=== PATIENT | male | born 1940 | race Caucasian/White ===

== ENCOUNTER 2019-05-26 11:50 | Emergency (ER) | payer OTHER ==
[~2019-05-26] VITALS: Ht 162.6 cm; Wt 63.5 kg
[2019-05-26 13:04] LABS: Source, Urine Clean Catch
[2019-05-26 13:10] LABS: Bilirubin, Urine Neg (Neg); Blood, Urine 2+ (Neg); Glucose Qualitative, Urine Neg (Neg); Ketones, Urine Neg (Neg); Leukocyte Esterase, Urine 1+ (Neg); Nitrite, Urine Neg (Neg); Protein, Urine Neg (Neg); Urobilinogen, Urine NORM (Normal)
[2019-05-26 13:30] LABS: Alanine Aminotransfer (ALT/SGP 17 U/L (12-78); Albumin, Blood 3.5 g/dL (3.4-5.0); Albumin/Globulin Ratio 0.8 (0.8-1.8); Alk Phos 48 U/L (50-136); Anion Gap 6 mmol/L (6-16); Aspartate Aminotrans (AST/SGOT 15 U/L (12-37); Bilirubin, Total 0.2 mg/dL (0.1-1.0); Blood Urea Nitrogen 22 mg/dL (8-24); Bun/Creatinine Ratio 18.6 (12.0-20.0); CO2, Blood 25 mmol/L (21-32); Calcium, Blood 9.1 mg/dL (8.5-10.1); Chloride, Blood 107 mmol/L (98-108); Creatinine, Blood 1.18 mg/dL (0.60-1.20); Globulin, Blood 4.4 g/dL (2.2-4.0); Glomerular Filtration Rate >60 (60-); Glucose, Blood 75 mg/dL (70-99); Sodium, Blood 138 mmol/L (136-145); Total Protein, Blood 7.9 g/dL (6.4-8.2)
[2019-05-26 13:36] LABS: Appearance, Urine Clear (Clear); Color, Urine Yellow (P-Yellow)
[2019-05-26 13:40] LABS: Bacteria Not Seen /hpf; Red Blood Cells, Urine Not Seen /hpf (0-2); Squamous Epithelial Cells Not Seen /hpf (Few)
[2019-05-26] MEDS ORDERED: LEVFLO500 PO (14:00)
[2019-05-26 14:01] LABS: BASOPHILS ABSOLUTE AUTO 0.05 K/mm3 (0.00-0.23); BASOPHILS PERCENT AUTO 0 % (0-2); EOSINOPHILS ABSOLUTE AUTO 0.06 K/mm3 (0.00-0.68); EOSINOPHILS PERCENT AUTO 1 % (0-6); Hematocrit 39.7 % (37.0-53.0); Hemoglobin 13.2 g/dL (13.5-17.5); IMMATURE GRAN ABSOLUTE AUTO 0.08 K/mm3 (0.00-0.10); IMMATURE GRAN PERCENT AUTO 1 % (0-1); LYMPHOCYTES ABSOLUTE AUTO 2.36 K/mm3 (0.84-5.20); LYMPHOCYTES PERCENT AUTO 18 % (21-46); MONOCYTES ABSOLUTE AUTO 1.73 K/mm3 (0.16-1.47); MONOCYTES PERCENT AUTO 13 % (4-13); Mean Corpuscular HGB Conc 33.2 g/dL (31.5-36.5); Mean Corpuscular Volume 93 fL (80-100); Mean Platelet Volume 9.5 fL (9.1-12.4); NEUTROPHILS ABSOLUTE AUTO 8.71 K/mm3 (1.96-9.15); NEUTROPHILS PERCENT AUTO 67 % (41-73); Platelet Count 210 K/mm3 (150-400); RDW Standard Deviation 44.1 fL (35.1-46.3); Red Blood Cell Count 4.26 M/mm3 (4.30-5.90); White Blood Cell Count 12.99 K/mm3 (4.00-11.30)
== END 2019-05-26 14:54 | disposition home or self-care (01) ==
LOC: ER 11:50
PROVIDERS: Emergency Medicine
DX: N45.1 Epididymitis (principal); I10 Essential (primary) hypertension; Z79.899 Other long term (current) drug therapy
CPT/HCPCS: 36415; 76870; 80053; 81001; 85025; 87077; 87086; 87186; 99284-25; A9270-GY

== ENCOUNTER 2019-07-29 09:11 | Emergency (ER) | payer SELFPAY ==
[~2019-07-29] VITALS: Ht 160 cm; Wt 63.5 kg
[~2019-07-29 09:11] MED LIST: LEVFLO500 PO
[2019-07-29] MEDS ORDERED: IBUP600 PO (11:28)
== END 2019-07-29 11:49 | disposition home or self-care (01) ==
LOC: ER 09:11
DX: M65.4 Radial styloid tenosynovitis [de Quervain] (principal); Z87.891 Personal history of nicotine dependence
CPT/HCPCS: 73110; 99283-25

== ENCOUNTER 2020-12-20 08:24 | Emergency (ER) | payer OTHER ==
[~2020-12-20] VITALS: Ht 167.6 cm; Wt 59.0 kg
[~2020-12-20 08:24] MED LIST changes: +IBUP600 PO
[2020-12-20 08:46] LABS: Appearance, Urine Clear (Clear); Blood, Urine Neg (Neg); Glucose Qualitative, Urine Neg (Neg); Ketones, Urine Neg (Neg); Leukocyte Esterase, Urine Neg (Neg); Nitrite, Urine Pos (Neg); Protein, Urine Neg (Neg); Urobilinogen, Urine 3+ (Normal)
[2020-12-20 08:53] LABS: Bilirubin, Urine 3+ (Neg); Color, Urine Other (P-Yellow)
[2020-12-20 09:09] LABS: Bacteria Rare /hpf; Red Blood Cells, Urine 0-2 /hpf (0-2); Squamous Epithelial Cells Rare /hpf (Few); White Blood Cells, Urine 0-2 /hpf (0-5)
[2020-12-20] MEDS ORDERED: Flomax0.4 MG PO (09:12)
[2020-12-20] MEDS ORDERED: Cipro500 MG PO (09:12)
== END 2020-12-20 10:46 | disposition home or self-care (01) ==
LOC: ER 08:24
PROVIDERS: Student in an Organized Health Care Education/Training Program
DX: N39.0 Urinary tract infection, site not specified (principal); I10 Essential (primary) hypertension; Z87.891 Personal history of nicotine dependence
CPT/HCPCS: 81001; 87086; 99283

== ENCOUNTER 2024-04-05 10:44 | Day surgery (SDC) | payer OTHER ==
[~2024-04-05] VITALS: Ht 165.1 cm; Wt 60.7 kg
[~2024-04-05 10:44] MED LIST changes: +Balanced Salt Epinephrine Irrigation Solution 500 mL IR SCH; +Cipro500 MG PO; +Diazepam 2 MG Tab PO PRN; +Flomax0.4 MG PO; +Lidocaine HCl/Pf 1% 5 ML VIAL XX SCH; +Moxifloxacin HCL 0.5 MG/0.1 ML 0.4MLSYR RIGHTEYE SCH; +Ondansetron 4 MG SoluTab MM PRN; +PHENYLEPHRINE\\TROPICAMIDE\\TETRACAINE OPHTHALMIC DILATING SOLN RIGHTEYE PRN; +Povidone-Iodine 450 DROP/30 ML Solution ONE; +Povidone-Iodine 450 DROP/30 ML Solution RIGHTEYE SCH; +Tetracaine HCl/Pf 0.5% Opth Soln 4 ml ONE; +Triamcinolone Inj Susp 40 MG / ML 1ML Vial INJ SCH; +Triamcinolone Inj Susp 40 MG / ML 1ML Vial ONE; +diazePAM 2 MG,diazePAM 5 MG PO SCH
[2024-04-05] MEDS ORDERED: MULTI-VITAMIN1 EAC2 PO (11:37)
--- NOTE | 2024-04-05 11:45 | NUR ---
04/05/24 1145 Bonnie Moreland TETRACAINE DROP IN RIGHT EYE 1128. PLEDGETT IN RIGHT EYE 1130. ALL PER ORSC.RDS.
[2024-04-05] MEDS ORDERED: propofoL 20 ML IV ONE (11:53)
[2024-04-05] MEDS ORDERED: NS 500 ML IV ONE (12:00)
[2024-04-05 12:28] VITALS: BP 101/68
== END 2024-04-05 12:42 | disposition home or self-care (01) ==
LOC: ORSCSDS 10:44
PROVIDERS: Ophthalmology
PROC: 08RJ3JZ Replacement of Right Lens with Synthetic Substitute, Percutaneous Approach (ICD-10-PCS; principal; 2024-04-05 12:00)
DX: H25.811 Combined forms of age-related cataract, right eye (principal); Z96.1 Presence of intraocular lens
CPT/HCPCS: J2704; J3301; J7040; V2632

== ENCOUNTER 2024-12-17 16:55 | Observation (INO) | payer OTHER ==
[~2024-12-17] VITALS: Ht 167.6 cm; Wt 60.1 kg
[~2024-12-17 16:55] MED LIST changes: -Balanced Salt Epinephrine Irrigation Solution 500 mL IR SCH; -Diazepam 2 MG Tab PO PRN; -Lidocaine HCl/Pf 1% 5 ML VIAL XX SCH; +MULTI-VITAMIN1 EAC2 PO; -Moxifloxacin HCL 0.5 MG/0.1 ML 0.4MLSYR RIGHTEYE SCH; -Ondansetron 4 MG SoluTab MM PRN; -PHENYLEPHRINE\\TROPICAMIDE\\TETRACAINE OPHTHALMIC DILATING SOLN RIGHTEYE PRN; -Povidone-Iodine 450 DROP/30 ML Solution ONE; -Povidone-Iodine 450 DROP/30 ML Solution RIGHTEYE SCH; -Tetracaine HCl/Pf 0.5% Opth Soln 4 ml ONE; -Triamcinolone Inj Susp 40 MG / ML 1ML Vial INJ SCH; -Triamcinolone Inj Susp 40 MG / ML 1ML Vial ONE; -diazePAM 2 MG,diazePAM 5 MG PO SCH
[2024-12-17 18:07] LABS: BASOPHILS ABSOLUTE AUTO 0.04 K/mm3 (0.00-0.23); BASOPHILS PERCENT AUTO 1 % (0-2); EOSINOPHILS ABSOLUTE AUTO 0.15 K/mm3 (0.00-0.68); EOSINOPHILS PERCENT AUTO 2 % (0-6); Hematocrit 40.5 % (37.0-53.0); Hemoglobin 13.2 g/dL (13.5-17.5); IMMATURE GRAN ABSOLUTE AUTO 0.03 K/mm3 (0.00-0.10); IMMATURE GRAN PERCENT AUTO 0 % (0-1); LYMPHOCYTES ABSOLUTE AUTO 1.76 K/mm3 (0.84-5.20); LYMPHOCYTES PERCENT AUTO 21 % (21-46); MONOCYTES ABSOLUTE AUTO 0.99 K/mm3 (0.16-1.47); MONOCYTES PERCENT AUTO 12 % (4-13); Mean Corpuscular HGB Conc 32.6 g/dL (31.5-36.5); Mean Corpuscular Volume 90 fL (80-100); NEUTROPHILS ABSOLUTE AUTO 5.31 K/mm3 (1.96-9.15); NEUTROPHILS PERCENT AUTO 64 % (41-73); NRBC ABSOLUTE 0.00 K/mm3 (0.00-0.02); NRBC Auto 0.0 /100 WBC (0.0-0.2); Platelet Count 181 K/mm3 (150-400); RDW Coefficient Variation 12.4 % (11.7-14.2); RDW Standard Deviation 40.6 fL (35.1-46.3)
[2024-12-17 18:47] LABS: Alanine Aminotransfer (ALT/SGP 16.0 U/L (12-78); Albumin, Blood 3.8 g/dL (3.4-5.0); Albumin/Globulin Ratio 1.2 (0.8-1.8); Anion Gap 3.0 mmol/L (3-11); Aspartate Aminotrans (AST/SGOT 14.0 U/L (12-37); Bilirubin, Total 0.5 mg/dL (0.1-1.0); Blood Urea Nitrogen 20.0 mg/dL (8-24); CO2, Blood 29.0 mmol/L (21-32); Calcium, Blood 9.5 mg/dL (8.5-10.1); Chloride, Blood 113.0 mmol/L (98-108); Creatinine, Blood 1.02 mg/dL (0.60-1.20); Globulin, Blood 3.2 g/dL (2.2-4.0); Glucose, Blood 89.0 mg/dL (70-99); Potassium, Blood 4.1 mmol/L (3.5-5.5); Sodium, Blood 141.0 mmol/L (136-145); Thyroid Stimulating Hormone 1.31 uIU/mL (0.360-4.800); Total Protein, Blood 7.0 g/dL (6.4-8.2)
[2024-12-17 19:08] LABS: Source, Urine Straight Cath
[2024-12-17 19:11] LABS: Bilirubin, Urine Neg (Neg); Color, Urine Yellow (P-Yellow); Glucose Qualitative, Urine Neg (Neg); Ketones, Urine 1+ (Neg); Leukocyte Esterase, Urine Neg (Neg); Protein, Urine 1+ (Neg); Specific Gravity, Urine 1.025 (1.003-1.022); Urobilinogen, Urine NORM (Normal)
--- NOTE | 2024-12-17 22:15 | NUR ---
CALLED AND RECEIVED REPORT FROM ZARINA IN ER FOR ASSUMPTION OF CARE OF PT TO ROOM 329.
[2024-12-17 22:42] VITALS: BP 107/81
[2024-12-17] MEDS ORDERED: Ondansetron HCl 2 MG / ML 2ML Vial IV PRN (23:25)
[2024-12-17] MEDS ORDERED: FLU VACC TS2025(65UP)/MF59C/PF 45 MCG/0.5 ML SYRINGE IM SCH (23:25)
[2024-12-17] MEDS ORDERED: NS 1,000 ML IV ONE (23:25)
[2024-12-17 23:53] LABS: Magnesium, Blood 2.1 mg/dL (1.6-2.4); Phosphorus, Blood 3.0 mg/dL (2.5-4.9)
[2024-12-18] MEDS ORDERED: Enoxaparin 40 MG/0.4 ML SYR SC SCH
[2024-12-18 05:57] VITALS: BP 108/54
[2024-12-18 06:24] LABS: BASOPHILS ABSOLUTE AUTO 0.04 K/mm3 (0.00-0.23); BASOPHILS PERCENT AUTO 1 % (0-2); EOSINOPHILS ABSOLUTE AUTO 0.16 K/mm3 (0.00-0.68); EOSINOPHILS PERCENT AUTO 2 % (0-6); Hematocrit 37.0 % (37.0-53.0); Hemoglobin 12.4 g/dL (13.5-17.5); IMMATURE GRAN ABSOLUTE AUTO 0.05 K/mm3 (0.00-0.10); IMMATURE GRAN PERCENT AUTO 1 % (0-1); LYMPHOCYTES ABSOLUTE AUTO 1.74 K/mm3 (0.84-5.20); LYMPHOCYTES PERCENT AUTO 23 % (21-46); MONOCYTES ABSOLUTE AUTO 0.88 K/mm3 (0.16-1.47); MONOCYTES PERCENT AUTO 12 % (4-13); Mean Corpuscular HGB Conc 33.5 g/dL (31.5-36.5); Mean Corpuscular Volume 88 fL (80-100); NEUTROPHILS ABSOLUTE AUTO 4.81 K/mm3 (1.96-9.15); NEUTROPHILS PERCENT AUTO 63 % (41-73); NRBC ABSOLUTE 0.00 K/mm3 (0.00-0.02); NRBC Auto 0.0 /100 WBC (0.0-0.2); Platelet Count 197 K/mm3 (150-400); RDW Coefficient Variation 12.4 % (11.7-14.2); RDW Standard Deviation 39.9 fL (35.1-46.3)
[2024-12-18 06:47] LABS: Alanine Aminotransfer (ALT/SGP 13.0 U/L (12-78); Albumin, Blood 3.3 g/dL (3.4-5.0); Albumin/Globulin Ratio 1.1 (0.8-1.8); Anion Gap 7.0 mmol/L (3-11); Aspartate Aminotrans (AST/SGOT 9.0 U/L (12-37); Bilirubin, Total 0.8 mg/dL (0.1-1.0); Blood Urea Nitrogen 19.0 mg/dL (8-24); CO2, Blood 26.0 mmol/L (21-32); Calcium, Blood 8.6 mg/dL (8.5-10.1); Chloride, Blood 113.0 mmol/L (98-108); Creatinine, Blood 1.09 mg/dL (0.60-1.20); Globulin, Blood 3.1 g/dL (2.2-4.0); Glucose, Blood 88.0 mg/dL (70-99); Potassium, Blood 3.8 mmol/L (3.5-5.5); Sodium, Blood 142.0 mmol/L (136-145); Total Protein, Blood 6.4 g/dL (6.4-8.2)
[2024-12-18 07:34] VITALS: BP 111/78
--- NOTE | 2024-12-18 07:53 | NUR ---
SHIFT SUMMARY THE PT WAS ADMITTED TO ROOM 329 FROM THE ER. HE WAS ASSISTED TO HIS BED AND OREIENTED TO HIS ROOM. THE PT IS A&OX0-1. HE DOES RESPOND TO HIS NAME BUT CANNOT STATE IT. HIS TALK IS NON-SENSICAL TO THE CONVERSATION AND HE IS NOT ABLE TO BE DIRECTED. THERE IS AN ATTENDS IN PLACE DUE TO INCREASED WEAKNESS AND DIFFICULTY DIRECTING PT HE DOES NOT UNDERSTAND DIRECTION TO USE A URINAL OR BSC. A STRAIGHT CATH WAS PERFORMED PER ORDERS TO OBTAIN A UA PER ORDERS. PT TOLERATED WELL. 300 MLS OF URINE WAS REMOVED AND SAMPLE SENT TO LAB. THE PT WAS ABLE TO REST MOST OF THE NIGHT IN BED AT LOWEST POSITION WITH CALL LIGHT WITHIN REACH AND BED ALARM ON.
[2024-12-18 10:53] VITALS: BP 118/97
--- NOTE | 2024-12-18 10:55 | NUR ---
ROUNDED ON PATIENT, HE WAS CURRENTLY SLEEPING. DISCUSSED CASE WITH BSRN. HE REPORTED THAT SHEMAR IS PLESANTLY CONFUSED. CALLED PATIENTS VERONICA. SHE REPORTED THAT SHEMAR HAS DEMENTIA AND HE HAS SOME INTERMITENT CONFUSION AT HOME. SHE STATED THAT THEY LIVE AT HOME AND THEY HAVE CAREGIVERS DAILY. CAREGIVERS ASSIST SHEMAR IN BATHING AND HE SOMETIMES DOES NOT WANT TO. HE IS UP ALL NIGHT AND SLEEPS MOST OF THE DAY.
[2024-12-18 16:53] VITALS: BP 127/66
--- NOTE | 2024-12-18 19:10 | NUR ---
ASSUMED CARE OF PT. A/O X 0 PT DOESNT ANSWER ANY QUESTIONS APPROPRIATLY BUT IS VERY PLEASENT AND DOES NOT RESIST ANY REDIRECTION. PT QUICK TO FORGET IF HE UNDERSTANDS AT ALL. PT NOT ABLE TO EXPRESS HIS NEEDS, SO CONSTANT MONITORING IS NEEDED. TODAY PT WAS CONSTANTLY TRYING TO GET OUT OF BED, PT WAS TAKEN TO BATHROOM SEVERAL TIMES, SAT IN A CHAIR WITH CHAIR ALARM, BUT WOULD NOT STAY IN BED OR SEATED. EVENTUALLY TANYA WAS PLACED WITHOUT INCIDENT. PT LAYING IN PULLING AT MONITOR AND PULLING AT TANYA. CONT TO BE VERY PLEASENT NOT REDIRECTABLE.
[2024-12-18 20:24] VITALS: BP 174/139
[2024-12-19 00:06] VITALS: BP 165/60
--- NOTE | 2024-12-19 04:12 | NUR ---
SHIFT SUMMARY A&OX1 TO SELF ONLY. VERY CONFUSED AND DOES NOT UNDERSTAND DIRECTION. HE IS NOT ABLE TO CALL APPROPRIATELY AND WAS CONSISTENTLY TRYING TO GET OUT OF BED FOR THE BEGINNING COUPLE OF HOURS OF SHIFT AND PULLING ON ALL LINES, REMOVING HIS TELE MULTIPLE TIMES. HE REMAINS IN A TANYA VEST FOR HIS SAFETY. HE DID HAVE A URINARY INCONTINENCE EPISODE AND WAS CLEANED AND A BED CHANGE PERFORMED WITH LAB ASSISTANT. THIS WAS FRUSTRATING FOR HIM HIS FISTS WERE CLENCHED AND HE SWUNG HIS ARMS TRYING TO BAT THIS RN AND THE LAB ASSISTANT AWAY. THIS RN AND LAB ASSISTANT WERE ABLE TO REASSURE THE PT AND HE TOLERATED WELL. HE WAS ABLE TO GET COMFORTABLE AND FALL ASLEEP AFTER BED CHANGE. CURRENTLY HE IS RESTING IN HIS BED AT THE LOWEST POSITION WITH CALL LIGHT WITHIN REACH.
[2024-12-19 04:53] VITALS: BP 128/53
[2024-12-19 06:21] LABS: Hematocrit 36.5 % (37.0-53.0); Hemoglobin 12.5 g/dL (13.5-17.5); Mean Corpuscular HGB Conc 34.2 g/dL (31.5-36.5); Mean Corpuscular Volume 88 fL (80-100); NRBC ABSOLUTE 0.00 K/mm3 (0.00-0.02); NRBC Auto 0.0 /100 WBC (0.0-0.2); Platelet Count 175 K/mm3 (150-400); RDW Coefficient Variation 12.1 % (11.7-14.2); RDW Standard Deviation 39.2 fL (35.1-46.3)
[2024-12-19 06:51] LABS: Albumin, Blood 3.1 g/dL (3.4-5.0); Anion Gap 9 mmol/L (3-11); Blood Urea Nitrogen 13 mg/dL (8-24); CO2, Blood 26 mmol/L (21-32); Calcium, Blood 8.6 mg/dL (8.5-10.1); Chloride, Blood 109 mmol/L (98-108); Creatinine, Blood 1.03 mg/dL (0.60-1.20); Glucose, Blood 91 mg/dL (70-99); Phosphorus, Blood 2.7 mg/dL (2.5-4.9); Potassium, Blood 3.6 mmol/L (3.5-5.5); Sodium, Blood 140 mmol/L (136-145)
[2024-12-19 07:59] VITALS: BP 126/60
[2024-12-19 11:41] VITALS: BP 130/74
[2024-12-19] MEDS ORDERED: Seroquel Xr50 MG PO (15:05)
[2024-12-19] MEDS ORDERED: DONEPEZIL HCL10 MG PO (15:05)
[2024-12-19 15:08] VITALS: BP 141/68
--- NOTE | 2024-12-19 16:28 | NUR ---
DISCHARGE NOTE PT D/C HOME AT 1620. DISCHARGE PACKET PLACED IN PT'S BELONGINGS. CAREGIVER AT BEDSIDE TO TRANSPORT PT HOME. BELONGINGS WERE RETURNED. PT'S NOTIFIED OF D/C. PT ESCOURTED OUT VIA W/C BY THIS RN AND JAIMEE BAUTISTA.
[2024-12-21] MEDS ORDERED: QUET25 PO (18:34)
== END 2024-12-19 16:47 | disposition home health service (06) ==
LOC: ER 16:55 → ERHOLD 16:56 → MEDS 16:56
PROVIDERS: Emergency Medicine; ADMIT Internal Medicine
DX: G93.40 Encephalopathy, unspecified (principal); E86.0 Dehydration; I10 Essential (primary) hypertension; Z87.891 Personal history of nicotine dependence
CPT/HCPCS: 36415; 51701; 51702; 70450; 71046; 80053; 80069; 81001; 82140; 82607; 82746; 83735; 83880; 84100; 84439; 84443; 84484; 85025; 85027; 86592; 93005; 93010; 96372; 99285-25; A9270; G0378; J1650; J7030

== ENCOUNTER → 2024-12-21 | Emergency (ER) | payer OTHER ==
[~2024-12-21] VITALS: Ht 167.6 cm; Wt 56.7 kg
[~2024-12-21] MED LIST changes: +DONEPEZIL HCL10 MG PO; +QUET25 PO; +Seroquel Xr50 MG PO
[2024-12-21 17:09] VITALS: BP 140/89
== END ==
LOC: ER 16:37
DX: S60.511A Abrasion of right hand, initial encounter (principal); F03.90 Unspecified dementia, unspecified severity, without behavioral disturbance, psychotic disturbance, mood disturbance, and anxiety; I10 Essential (primary) hypertension; W01.0XXA Fall on same level from slipping, tripping and stumbling without subsequent striking against object, initial encounter; Z87.891 Personal history of nicotine dependence; Z79.899 Other long term (current) drug therapy
CPT/HCPCS: 51798; 73130; 99283-25; A9270

== ENCOUNTER 2024-12-26 11:47 | Emergency (ER) | payer OTHER ==
[~2024-12-26] VITALS: Ht 170.2 cm; Wt 63.5 kg
[~2024-12-26 11:47] MED LIST changes: +DONE5 PO; -DONEPEZIL HCL10 MG PO
[2024-12-26 12:51] LABS: BASOPHILS ABSOLUTE AUTO 0.05 K/mm3 (0.00-0.23); BASOPHILS PERCENT AUTO 1 % (0-2); EOSINOPHILS ABSOLUTE AUTO 0.10 K/mm3 (0.00-0.68); EOSINOPHILS PERCENT AUTO 1 % (0-6); Hematocrit 40.7 % (37.0-53.0); Hemoglobin 13.2 g/dL (13.5-17.5); IMMATURE GRAN ABSOLUTE AUTO 0.03 K/mm3 (0.00-0.10); IMMATURE GRAN PERCENT AUTO 0 % (0-1); LYMPHOCYTES ABSOLUTE AUTO 1.48 K/mm3 (0.84-5.20); LYMPHOCYTES PERCENT AUTO 15 % (21-46); MONOCYTES ABSOLUTE AUTO 0.98 K/mm3 (0.16-1.47); MONOCYTES PERCENT AUTO 10 % (4-13); Mean Corpuscular HGB Conc 32.4 g/dL (31.5-36.5); Mean Corpuscular Volume 91 fL (80-100); NEUTROPHILS ABSOLUTE AUTO 6.98 K/mm3 (1.96-9.15); NEUTROPHILS PERCENT AUTO 73 % (41-73); NRBC ABSOLUTE 0.00 K/mm3 (0.00-0.02); NRBC Auto 0.0 /100 WBC (0.0-0.2); Platelet Count 237 K/mm3 (150-400); RDW Coefficient Variation 12.2 % (11.7-14.2); RDW Standard Deviation 40.7 fL (35.1-46.3)
[2024-12-26] MEDS ORDERED: Lidocaine 2% Jelly Uro-Jet UR ONE (13:10)
[2024-12-26 13:49] LABS: Alanine Aminotransfer (ALT/SGP 21.0 U/L (12-78); Albumin, Blood 3.6 g/dL (3.4-5.0); Albumin/Globulin Ratio 1.0 (0.8-1.8); Anion Gap 8.0 mmol/L (3-11); Aspartate Aminotrans (AST/SGOT 15.0 U/L (12-37); Bilirubin, Total 0.3 mg/dL (0.1-1.0); Blood Urea Nitrogen 17.0 mg/dL (8-24); CO2, Blood 26.0 mmol/L (21-32); Calcium, Blood 9.1 mg/dL (8.5-10.1); Chloride, Blood 111.0 mmol/L (98-108); Creatinine, Blood 1.0 mg/dL (0.60-1.20); Globulin, Blood 3.7 g/dL (2.2-4.0); Glucose, Blood 89.0 mg/dL (70-99); Potassium, Blood 3.9 mmol/L (3.5-5.5); Sodium, Blood 141.0 mmol/L (136-145); Total Protein, Blood 7.3 g/dL (6.4-8.2)
[2024-12-26 13:50] LABS: Source, Urine Straight Cath
[2024-12-26 13:59] LABS: Bilirubin, Urine Neg (Neg); Color, Urine Yellow (P-Yellow); Glucose Qualitative, Urine Neg (Neg); Ketones, Urine Neg (Neg); Leukocyte Esterase, Urine Neg (Neg); Protein, Urine 1+ (Neg); Specific Gravity, Urine 1.025 (1.003-1.022); Urobilinogen, Urine NORM (Normal)
[2024-12-26 14:12] LABS: White Blood Cells, Urine 0-2 /hpf (0-5)
[2024-12-26 17:42] VITALS: BP 124/74
[2024-12-27] MEDS ORDERED: POLY500 PO (16:52)
[2024-12-27] MEDS ORDERED: SENNA LAXATIVE8.6 MG PO (16:52)
== END 2024-12-26 17:41 | disposition home or self-care (01) ==
LOC: ER 11:47
PROVIDERS: Family Medicine
DX: F03.90 Unspecified dementia, unspecified severity, without behavioral disturbance, psychotic disturbance, mood disturbance, and anxiety (principal); Z87.891 Personal history of nicotine dependence; Z79.899 Other long term (current) drug therapy
CPT/HCPCS: 51701; 80053; 81001; 82140; 85025; 87086; 99284; A9270

== ENCOUNTER 2025-01-02 21:52 | Inpatient (IN) | payer OTHER ==
[~2025-01-02] VITALS: Ht 172.7 cm; Wt 72.6 kg
[~2025-01-02 21:52] MED LIST changes: +POLY500 PO; +SENNA LAXATIVE8.6 MG PO
[2025-01-02] MEDS ORDERED: Diazepam 5 MG / ML 2ML SYR IV ONE (22:10)
[2025-01-02 22:43] LABS: BASOPHILS ABSOLUTE AUTO 0.04 K/mm3 (0.00-0.23); BASOPHILS PERCENT AUTO 0 % (0-2); EOSINOPHILS ABSOLUTE AUTO 0.00 K/mm3 (0.00-0.68); EOSINOPHILS PERCENT AUTO 0 % (0-6); Hematocrit 36.2 % (37.0-53.0); Hemoglobin 12.1 g/dL (13.5-17.5); IMMATURE GRAN ABSOLUTE AUTO 0.10 K/mm3 (0.00-0.10); IMMATURE GRAN PERCENT AUTO 1 % (0-1); LYMPHOCYTES ABSOLUTE AUTO 0.85 K/mm3 (0.84-5.20); LYMPHOCYTES PERCENT AUTO 8 % (21-46); MONOCYTES ABSOLUTE AUTO 0.65 K/mm3 (0.16-1.47); MONOCYTES PERCENT AUTO 6 % (4-13); Mean Corpuscular HGB Conc 33.4 g/dL (31.5-36.5); Mean Corpuscular Volume 90 fL (80-100); NEUTROPHILS ABSOLUTE AUTO 9.10 K/mm3 (1.96-9.15); NEUTROPHILS PERCENT AUTO 85 % (41-73); NRBC ABSOLUTE 0.00 K/mm3 (0.00-0.02); NRBC Auto 0.0 /100 WBC (0.0-0.2); Platelet Count 301 K/mm3 (150-400); RDW Coefficient Variation 12.3 % (11.7-14.2); RDW Standard Deviation 39.7 fL (35.1-46.3)
[2025-01-02 23:05] LABS: Alanine Aminotransfer (ALT/SGP 27.0 U/L (12-78); Albumin, Blood 3.0 g/dL (3.4-5.0); Albumin/Globulin Ratio 1.0 (0.8-1.8); Anion Gap 12.0 mmol/L (3-11); Aspartate Aminotrans (AST/SGOT 17.0 U/L (12-37); Bilirubin, Total 0.6 mg/dL (0.1-1.0); Blood Urea Nitrogen 35.0 mg/dL (8-24); CO2, Blood 24.0 mmol/L (21-32); Calcium, Blood 8.8 mg/dL (8.5-10.1); Chloride, Blood 108.0 mmol/L (98-108); Creatinine, Blood 1.16 mg/dL (0.60-1.20); Globulin, Blood 3.0 g/dL (2.2-4.0); Glucose, Blood 136.0 mg/dL (70-99); Magnesium, Blood 2.1 mg/dL (1.6-2.4); Potassium, Blood 3.8 mmol/L (3.5-5.5); Sodium, Blood 140.0 mmol/L (136-145); Total Protein, Blood 6.0 g/dL (6.4-8.2)
[2025-01-02 23:19] LABS: Influenza A, PCR NEGATIVE (NEGATIVE); Influenza B, PCR NEGATIVE (NEGATIVE); Resp Syncytial Virus, PCR NEGATIVE (NEGATIVE); SARS-Cov-2 (COVID-19) PCR, MMC NEGATIVE (NEGATIVE)
[2025-01-03 01:57] LABS: Source, Urine Clean Catch
[2025-01-03 02:42] LABS: Bilirubin, Urine Neg (Neg); Glucose Qualitative, Urine Neg (Neg); Ketones, Urine 2+ (Neg); Leukocyte Esterase, Urine Neg (Neg); Protein, Urine 1+ (Neg); Specific Gravity, Urine 1.030 (1.003-1.022); Urobilinogen, Urine NORM (Normal)
[2025-01-03 02:54] LABS: Color, Urine Yellow (P-Yellow)
[2025-01-03 02:55] LABS: White Blood Cells, Urine 0-2 /hpf (0-5)
[2025-01-03] MEDS ORDERED: Ondansetron HCl 2 MG / ML 2ML Vial IV PRN (04:20)
[2025-01-03] MEDS ORDERED: FLU VACC TS2025(65UP)/MF59C/PF 45 MCG/0.5 ML SYRINGE IM SCH (04:20)
[2025-01-03] MEDS ORDERED: Albuterol 2.5 MG/3 ML VIAL INH PRN (05:05)
[2025-01-03 05:52] VITALS: BP 127/69
[2025-01-03 07:13] VITALS: BP 104/68
--- NOTE | 2025-01-03 07:45 | NUR ---
ASSUMED CARE AT 0540. ALERT, ORIENTED TO NAME AND BIRTHDATE. PT PLEASANT AND REDIRECTABLE HOWEVER MD CONTACTED TO REQUEST SOFT WRIST RESTRAINTS IN ORDER TO KEEP TELE LINES AND IV INTACT, PT TOLERATING WELL. TRANSFERRED BY LIFT SHEET. STAGE II PRESSURE WOUND NOTED AT SACRUM, WOUND AT R LAMBERT; PHOTOS IN CHART. PT DENIES PAIN. SAFETY PRECAUTIONS IN PLACE.
[2025-01-03] MEDS ORDERED: CIPR500 PO (08:40)
[2025-01-03] MEDS ORDERED: QUET25 PO (08:42)
[2025-01-03] MEDS ORDERED: LOPE2C PO (08:43)
[2025-01-03] MEDS ORDERED: Acetaminophen325 M1 PO (08:44)
--- NOTE | 2025-01-03 09:00 | NUR ---
Pt laying in bed awake, speaks unintellible words, is cooperative with care, and follows some commands, is in soft wrist restraints, pulling on them and lines, lungs are clear in upper guzm[place], dim in bases, resp even and unlabored, no cough noted, on r/a, hrr, no edema noted, ppp+1, cap refill <3 sec, vs stable, afebrile, piv to left ac, site is clear and patent, infusing lr as ordered, btx4, abd flat soft nontender, incont of bowel and bladder, briefs in place, skin has mepilex to coccyx, dressing to right pulliam lisa dick, call light in reach.
[2025-01-03 10:57] VITALS: BP 118/66
[2025-01-03 15:39] VITALS: BP 103/55
--- NOTE | 2025-01-03 17:53 | NUR ---
no acute changes with pt, remained in soft wrist restraints, as he pulls on every line when released, will have dinner tonight, will move to scu when bed available, call light in reach.
[2025-01-03 19:41] VITALS: BP 114/94
--- NOTE | 2025-01-03 21:06 | NUR ---
ROOM 313 TO ROOM 346 TRANSFER END OF DAY SHIFT. REPORT TAKEN FROM YOVANY PEDROZA RN. IN WRIST RESTRAINTS AND LR INFUSING @ 125 mL/HR. ROOM AIR. TM.
[2025-01-04 00:28] VITALS: BP 126/71
--- NOTE | 2025-01-04 04:02 | NUR ---
SHIFT SUMMARY PATIENT HAD NO ACUTE CHANGES. ALERT TO SELF AND BED REST. UNINTELLABLE WORDS. WRIST RESTRAINTS PER ORDER PULLING AT LINES AND CORDS. PIV INTACT. LR FINISHED INFUSING. ZYPREXA 5MG GIVEN FOR AGITATION. AWAKE MOST OF THE SHIFT. TELE MONITOR SR 80. CALL LIGHT IN REACH. BED IN LOWEST POSITION AND ALARMED. WILL CONTINUE TO MONITOR UNTIL DAY SHIFT NURSE ASSUMES CARE.
[2025-01-04 05:10] VITALS: BP 128/70
[2025-01-04 07:23] VITALS: BP 132/72
[2025-01-04 11:41] VITALS: BP 131/67
--- NOTE | 2025-01-04 14:35 | NUR ---
rounded on patinet he was asleep and in restraints. call placed to patients spouse. we discussed code status, she would like him to remain full code at this point in time. reviewed with provider, will continue conversation about code status and hospice.
--- NOTE | 2025-01-04 17:07 | NUR ---
End of shift summary: Patient is alert to self only; some mild agitation with care this morning and continued pulling at lines noted. Patient slept most of day and did not eat much of meals. Restraints still in place and no s/s of distress or injury noted or voiced. Denies SOB, CP, N/V and no signs noted. Bed in lowest position and call light within reach. Will continue to monitor until next shift nurse arrives and report is given.
[2025-01-04 17:29] VITALS: BP 142/78
[2025-01-04 19:28] VITALS: BP 139/76
[2025-01-05 00:07] VITALS: BP 146/68
[2025-01-05 04:15] VITALS: BP 127/83
--- NOTE | 2025-01-05 06:39 | NUR ---
Shift Summary Pt is AOx0-1, very confused and fearful during patient care. He is in soft wrist restraints as he pulls on lines and grabs/swats at staff when afraid. Pt refused all PO medications. Incontinent voids, attends changed PRN. Pt rcved 1 bag of LR this shift, bag 2/2 as ordered. Very little PO intake, I encouraged fluids and pt took two small sips of water twice.
[2025-01-05 07:30] VITALS: BP 130/80
[2025-01-05] MEDS ORDERED: NS 1,000 ML IV SCH (09:00)
--- NOTE | 2025-01-05 13:39 | NUR ---
DISCUSSED CASE WITH CAREGIVER ORACIO THIS AM. SHE AGREED THAT HOSPICE WOULD BE THE BEST OPTION FOR SHEMAR AT THIS POINT IN HIS DISEASE PROCESS. SHE REPORTED SHE WOULD BE IN THIS AFTERNOON WITH PATIENTS AND WE COULD CONTINUE THE PROCESS. ROUNDED ON PATIENT THIS AFTERNOON AT BEDSIDE, CAREGIVER ORACIO AND CAREGIVER ARIE AT BEDSIDE. DISCUSSED IN DEPTH ABOUT HOSPICE AND CODE STATUS. WAS AGREEABLE WITH TRANSITIONING TO COMFORT CARE AND GOING BACK TO HIS FACILITY WITH THE SUPPORT OF HOSPICE. EDUCATED ON THE CHANGES THAT WOULD TAKE PLACE REGARDING THE FOCUS OF CARE. SPOUSE EXPRESSED UNDERSTANDING AND AGREED WITH THIS PLAN
[2025-01-05] MEDS ORDERED: Morphine Sulfate 20 MG/1ML 1 ML Oral Syringe SL PRN (14:30)
[2025-01-05] MEDS ORDERED: Atropine Sulfate 1% Opth Soln 2ML BTL SL PRN (14:30)
--- NOTE | 2025-01-05 18:01 | NUR ---
End of shift summary: Patient is alert to self, family at times; continues to have some agitation with care. Restraints discontinued at 1505 and patient now comfort care/DNR with goal to discharge home with hospice. Patient with minimal intake, sips only today. All medications crushed and mixed with water and administered in syringe today. Patient currently resting comfortably in bed. Bed in lowest position, alarm in place for safety, call light within reach. Will continue to monitor until next shift nurse arrives and report is given.
--- NOTE | 2025-01-06 06:21 | NUR ---
Shift Summary Pt is on comfort care. Per report and EMAR he had rcvd 1 mg of Ativan during day shift. He slept well t/o the night. Incontinent voids, attends changed PRN. No signs of pain or distress. Breaths even and unlabored.
--- NOTE | 2025-01-06 15:49 | NUR ---
BOWEL CARE ORDERED
--- NOTE | 2025-01-06 17:06 | NUR ---
End of shift summary: Patient is alert to self, more awake today and has eaten some food with complete care. Patient with no acute changes today and all medications administered per EMAR. Patient repositioned as allowed. Family in to visit today. Appears comfortable and resting at this time. Will continue to monitor until next shift nurse arrives and report is given.
--- NOTE | 2025-01-07 06:22 | NUR ---
SHIFT SUMMARY: AXO TO SELF AND COMFORT MEASURES MAINTAINED.. INCONTINENT OF BOWEL AND BLADDER; LBM 01/07/25. PATIENT IS 3 PERSON ASSIST WITH CARE AND ADL S FOR OCCASIONAL COMBATIVITY. PT CALMS WITH REASSURANCE. BEDREST. MEDS CRUSHED IN JELLO/PUDDING, TURN SCHEDULE MAINTAINED FOR SKIN BREAKDOWN PREVENTION. RED RASHED NOTED FROM TELE/EKG ADHESIVES. BED IN LOWEST POSITION, CALL LIGHT WITHIN REACH, REPORT TO ONCOMING NURSE.
--- NOTE | 2025-01-07 15:48 | NUR ---
A FULL SKIN ASSESSMENT SHOWS NO EVIDENCE OF A PRESSURE SORE AT THE TOP OF THE CLUTEAL CLEFT, NOTED ON ADMIT. MEPILEX PLACED ON THE RIGHT ISHIUM FOR SOME REDNESS THAT IS BLANCHABLE AND AN AREA THAT MAY BE SCABBED OR JUST DRY SKIN, THE PT CAN BE RESISTIVE TO CARE AND LASH OUT IN FEAR AT TIMES, IT WAS DIFFICULT TO VISUALIZE. THE RIGHT LAMBERT HAS A LARGE ABRASION THAT IS COVERED WITH MEPILEX, CALLED DR PERALTA HE WILL LOOK AT IT WHEN HE SEES THE PT NEXT.
--- NOTE | 2025-01-07 18:05 | NUR ---
SHIFT SUMMARY- PT HAS DENIED PAIN T/O THE SHIFT WHEN ASKED. HE IS DEFENSIVE WHEN PEOPLE ATTEMPT TO PROVIDE CARE. HE GRABS FOR ANYTHING IN REACH WHEN BEING MOVED, HE CAN UNDERSTAND SOME AND IF HE CAN HOLD SOMEONES HANDS WHILE CARE IS BEING PROVIDED HE DOES WELL. PT HAD A BED BATH TODAY AND WAS TURNED Q2 MEPILEX PLACED OVER A RED SPOT THAT WAS BLANCHABLE ON HIS BOTTOM. NOTIFIED HE WILL TAKE A LOOK AT THE WOUND ON THE PT LAMBERT TOMORROW. THE PLAN IS FOR THE PT TO DC BACK TO [facility] TOMORROW WITH [facility] ADMIT PLANNED FOR TUESDAY. PT IS SITTING UP IN BED, CALL LIGHT IN REACH NO S&S OF DISTRESS NOTED AT THIS TIME.
--- NOTE | 2025-01-08 06:10 | NUR ---
SHIFT SUMMARY PT IS A&O TO SELF ONLY. PT CAN GET COMBATIVE DURING CARE AND ADL S. PT REMAINS ON COMFORT CARE MEASURES. PT DENIES PAIN T/O SHIFT. NO ACUTE CHANGES. PT RESTED T/O SHIFT WITH EVEN AND UNLABORED, BED IN THE LOWEST POSITION AND CALL LIGHT WITHIN REACH.
--- NOTE | 2025-01-08 13:30 | NUR ---
DISCHARGE NOTE: CALLED [facility] AND GAVE REPORT TO Flock. PT DISCHARGE BACK TO [facility] VIA [facility] IN AMBULANCE. PERSONAL BELONGING GIVEN. MEDS FAXED. TRANSPORT TEAM GIVEN DISCHARGE PACKET.
== END 2025-01-08 13:27 | disposition hospice, home (50) | DRG 314 ==
LOC: ER 21:52 → MEDS 21:53 → ENPENDDIS 01-08 11:59 → MEDS 01-08 13:27
PROVIDERS: Student in an Organized Health Care Education/Training Program; ADMIT Student in an Organized Health Care Education/Training Program
DX: I95.89 Other hypotension (principal); G92.8 Other toxic encephalopathy; J96.01 Acute respiratory failure with hypoxia; F03.911 Unspecified dementia, unspecified severity, with agitation; E87.20 Acidosis, unspecified; Z51.5 Encounter for palliative care; Z66 Do not resuscitate; R62.7 Adult failure to thrive; I10 Essential (primary) hypertension; D64.9 Anemia, unspecified; R00.0 Tachycardia, unspecified; E86.0 Dehydration; T42.75XA Adverse effect of unspecified antiepileptic and sedative-hypnotic drugs, initial encounter; Z68.24 Body mass index [BMI] 24.0-24.9, adult; Z87.891 Personal history of nicotine dependence; Z91.81 History of falling; Z78.1 Physical restraint status
CPT/HCPCS: 36415; 51701; 70450; 71045; 72125; 80053; 81001; 82947; 83605; 83735; 83880; 84484; 85025; 85379; 87040; 87637; 93005; 93010; 94760; 94762; 96361; 96374; 99285-25; A9270; G0378; J3360; J7030; J7120